=== PATIENT | female | born 1965 | race Caucasian/White ===

== ENCOUNTER 2020-05-04 16:38 | Emergency (ER) | payer BC ==
--- NOTE | 2020-05-04 17:35 | EDM.PDOC ---
ED HPI GENERAL MEDICAL PROBLEM - General Chief Complaint: Gastrointestinal Problem Stated Complaint: TROUBLE SWOLLOWING Time Seen by Provider: 05/04/20 17:18 Source of Information: Reports: Patient, Family History Limitations: Reports: No Limitations - History of Present Illness INITIAL COMMENTS - FREE TEXT/NARRATIVE: Meagan presents today with inability to swallow liquids. She reports this am she ate donuts, swallowed her pills and drank water without a problem. She then drank two bottles of water up until late afternoon. At [id number] she found that she could not get water or lemonade down, the liquid would just come up. She denies pain with swallowing. She states she tried to belch but is unable to. History of esophageal bolus and esophageal dilation. - Related Data Allergies Allergy/AdvReac Type Severity Reaction Status Date / Time aloe vera [From Biolex] Allergy Nausea Verified 05/04/20 17:01 amoxicillin Allergy Rash Verified 05/04/20 17:01 bacitracin Allergy Rash Verified 05/04/20 17:01 [From Neosporin ([id number])] neomycin Allergy Rash Verified 05/04/20 17:01 [From Neosporin ([id number])] pantothenic acid Allergy Nausea Verified 05/04/20 17:01 [From Biolex] polymyxin B Allergy Rash Verified 05/04/20 17:01 [From Neosporin ([id number])] Sulfa (Sulfonamide Allergy Rash Verified 05/04/20 17:01 Antibiotics) water [From Biolex] Allergy Nausea Verified 05/04/20 17:01 Home Meds: Home Meds NK [No Known Home Meds] 05/04/20 [History] Rizatriptan [Maxalt CLINICAL LABORATORY DIRECTOR] 10 mg PO ASDIRECTED PRN 05/04/20 [History] 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: - Past Surgical History Other HEENT Surgeries/Procedures: throat was streched surgicaly in 2017 GI Surgical History: Reports: Cholecystectomy Female Surgical History: Reports: Hysterectomy Social & Family History - Tobacco Use Smoking Status *Q: Never Smoker - Caffeine Use Caffeine Use: Reports: Soda - Recreational Drug Use Recreational Drug Use: No ED ROS ENT - Review of Systems Review Of Systems: See Below Constitutional: Reports: No Symptoms HEENT: Reports: Other (unable to swallow fluids, ) Respiratory: Reports: No Symptoms Cardiovascular: Reports: No Symptoms Endocrine: Reports: No Symptoms GI/Abdominal: Reports: No Symptoms : Reports: No Symptoms Musculoskeletal: Reports: No Symptoms Skin: Reports: No Symptoms Neurological: Reports: No Symptoms Psychiatric: Reports: No Symptoms Hematologic/Lymphatic: Reports: No Symptoms Immunologic: Reports: No Symptoms ED EXAM, ENT - Physical Exam Exam: See Below Exam Limited By: No Limitations General Appearance: Alert, WD/WN, No Apparent Distress Eye Exam: Bilateral Eye: Normal Inspection Nose: Normal Inspection, Normal Mucousa, No Blood Mouth/Throat: Normal Gums, Normal Lips, Normal Oropharynx, Normal Teeth, Other (left cervical node edema, patient unable to swallow saliva or water.) Head: Atraumatic, Normocephalic Neck: Normal Inspection, Supple, Non-Tender, Full Range of Motion, Lymphadenopathy (L), Other (noted edema of left anterior cervical node). No: Lymphadenopathy (R) Respiratory/Chest: No Respiratory Distress, Lungs Clear, Normal Breath Sounds, No Accessory Muscle Use, Chest Non-Tender. No: Crackles, Rales, Rhonchi, Wheezing, Stridor, Accessory Muscle Use, Retractions Cardiovascular: Normal Peripheral Pulses, Regular Rate, Rhythm, No Edema, No Murmur, No Rub Extremities: Normal Inspection, Normal Range of Motion. No: Non-Tender, No Pedal Edema, Normal Capillary Refill Neurological: Alert, Oriented, CN II-XII Intact, Normal Cognition, Normal Gait, No Motor/Sensory Deficits Psychiatric: Normal Affect, Normal Mood Skin: Warm, Dry, Intact, Normal Color, No Rash Lymphatic: No Adenopathy Course - Vital Signs Last Recorded V/S: Last Vital Signs Temp 36.1 C 05/04/20 17:02 Pulse 89 05/04/20 17:02 Resp 13 05/04/20 17:02 BP 130/85 05/04/20 17:02 Pulse Ox 95 05/04/20 17:02 - Orders/Labs/Meds Orders: Active Orders 24 hr Category Date Time Status Neck Soft Tissue [CR] Stat Exams 05/04/20 17:33 Taken Pantoprazole [ProTONIX] Med 05/04/20 20:33 Active 40 mg PO BEDTIME Sodium Chloride 0.9% [Saline Flush] Med 05/04/20 18:43 Active 10 ml FLUSH ASDIRECTED PRN Saline Lock Insert [OM.PC] Routine Oth 05/04/20 18:43 Ordered Medication Orders Pantoprazole Sodium (Protonix) 40 mg PO BEDTIME HOLDEN Last Admin: 05/04/20 20:54 Dose: 40 mg Documented by: ASHTYN Sodium Chloride (Saline Flush) 10 ml FLUSH ASDIRECTED PRN PRN Reason: Keep Vein Open Last Admin: 05/04/20 18:52 Dose: 10 ml Documented by: GRETA Meds: Medications Generic Name Dose Route Start Last Admin Trade Name Freq PRN Reason Stop Dose Admin Pantoprazole Sodium 40 mg 05/04/20 20:33 05/04/20 20:54 Protonix PO 40 mg BEDTIME HOLDEN Administration Sodium Chloride 10 ml 05/04/20 18:43 05/04/20 18:52 Saline Flush FLUSH 10 ml ASDIRECTED PRN Administration Keep Vein Open Discontinued Medications Generic Name Dose Route Start Last Admin Trade Name Freq PRN Reason Stop Dose Admin Glucagon 1 mg 05/04/20 18:42 05/04/20 18:52 Glucagen IM 05/04/20 18:43 1 mg ONETIME ONE Administration Pantoprazole Sodium 40 mg 05/04/20 20:18 05/04/20 20:28 Protonix Iv IVPUSH 05/04/20 20:19 40 mg ONETIME ONE Administration - Radiology Interpretation Free Text/Narrative:: Neck x-ray reviewed with patient, no acute findings. - Re-Assessments/Exams Free Text/Narrative Re-Assessment/Exam: 05/04/20 18:41 We will try glucagon 1mg IV. 05/04/20 19:10 Patient able to swallow water without any issue. 05/04/20 19:30 Dr. Lee notified of patient status, he recommends EGD on Wednesday05/06/2020, protonix 40mg IV now and 40mg PO tomorrow. Clear liquid diet until procedure. NPO after midnight tomorrow. Departure - Departure Time of Disposition: 20:28 Disposition: Home, Self-Care 01 Clinical Impression: Esophageal spasm, History of esophageal stricture - Discharge Information Instructions: Esophageal Spasm, Clear Liquid Diet, Adult Referrals: PCP,None [Primary Care Provider] - Forms: ED Department Discharge Additional Instructions: You have been evaluated and treated for esophageal spasm. Unknown if you had a food bolus or other stricture. General surgeon Dr. Lee advises protonix 40mg IV in emergency room, EGD on 05/06/2020. Take protonix 40mg by mouth in morning (05/05/2020) Clear liquid diet until tomorrow. Nothing to eat or drink on 02/03/2020 after midnight. Wednesday at 10:15am for procedure. Return for any worsening, issues or concerns. Clear liquid diet: (transparent) Water Gatorade (not red or blue) Apple juice Chicken, vegetable or beef broth Popsicles (no fruit pieces, no red or blue) Jello Sepsis Event Note (ED) - Evaluation Sepsis Screening Result: No Definite Risk - Focused Exam Vital Signs: Vital Signs Temp Pulse Resp BP Pulse Ox 05/04/20 17:02 36.1 C 89 13 130/85 95 05/04/20 16:54 36.1 C 89 13 130/85 95 - My Orders Last 24 Hours: My Active Orders 05/04/20 17:33 Neck Soft Tissue [CR] Stat 05/04/20 18:43 Sodium Chloride 0.9% [Saline Flush] 10 ml FLUSH ASDIRECTED PRN Saline Lock Insert [OM.PC] Routine 05/04/20 20:33 Pantoprazole [ProTONIX] 40 mg PO BEDTIME - Assessment/Plan Last 24 Hours: My Active Orders 05/04/20 17:33 Neck Soft Tissue [CR] Stat 05/04/20 18:43 Sodium Chloride 0.9% [Saline Flush] 10 ml FLUSH ASDIRECTED PRN Saline Lock Insert [OM.PC] Routine 05/04/20 20:33 Pantoprazole [ProTONIX] 40 mg PO BEDTIME Plan: Patient evaluated and treated for esophageal spasm. Use of glucagon assisted. Unknown if you had a food bolus or other stricture. General surgeon Dr. Lee advises protonix 40mg IV in emergency room, EGD on 05/06/2020. Take protonix 40mg by mouth in morning (05/05/2020) Clear liquid diet until tomorrow. Nothing to eat or drink on 02/03/2020 after midnight. Wednesday at 10:15am for procedure. Return for any worsening, issues or concerns. Clear liquid diet: (transparent) Water Gatorade (not red or blue) Apple juice Chicken, vegetable or beef broth Popsicles (no fruit pieces, no red or blue) Kiara
[2020-05-04] MEDS ORDERED: Glucagon,Human Recombinant 1 MG Vial IM ONE (18:42)
[2020-05-04] MEDS ORDERED: Sodium Chloride 0.9% 10 ML Syringe FLUSH PRN (18:43)
[2020-05-04] MEDS ORDERED: Pantoprazole 40 MG Vial IVPUSH ONE (20:18)
[2020-05-04] MEDS: Pantoprazole 40 MG Tab.CR PO SCH ×2 (20:54→21:04)
--- NOTE | 2020-05-06 09:35 | CR ---
Neck Soft Tissue CLINICAL HISTORY: Unable to swallow fluids FINDINGS: Prevertebral soft tissues are normal. The epiglottis has a normal contour. Subglottic airway has a normal contour. No radiopaque foreign body is identified. IMPRESSION: Negative
== END 2020-05-04 21:06 | disposition home or self-care (01) ==
LOC: JP.ED 16:38
DX: K22.4 Dyskinesia of esophagus (principal); Z91.018 Allergy to other foods; Z88.1 Allergy status to other antibiotic agents; Z88.8 Allergy status to other drugs, medicaments and biological substances; Z88.2 Allergy status to sulfonamides; Z87.19 Personal history of other diseases of the digestive system
CPT/HCPCS: 70360; 96372; 96374; 99284; A9270; C9113; J1610

== ENCOUNTER 2020-05-06 09:55 | Inpatient (IN) | payer BC ==
[2020-05-06] MEDS ORDERED: Dextrose 5%-Lactated Ringers 1,000 ML IV SCH (10:00)
[2020-05-06] MEDS ORDERED: fentaNYL 100 MCG/2 ML SDV ONE (11:06)
[2020-05-06] MEDS ORDERED: Midazolam 1 MG/ML 2 ML SDV ONE (11:06)
[2020-05-06] MEDS ORDERED: Propofol 200 MG/20 ML SDV ONE (11:06)
[2020-05-06] MEDS: Glycopyrrolate 0.2 MG/ML 2 ML SDV IVPUSH ONE ×2 (13:08→16:44)
[2020-05-06] MEDS ORDERED: Pantoprazole 40 MG Vial IVPUSH ONE (13:42)
[2020-05-06] MEDS ORDERED: Ondansetron 4 MG/2 ML SDV IVPUSH ONE (14:43)
[2020-05-06] MEDS ORDERED: Ketorolac 60 MG/2 ML SDV IM ONE (14:43)
[2020-05-06] MEDS ORDERED: Ondansetron 4 MG/2 ML SDV IVPUSH PRN (16:32)
[2020-05-06] MEDS ORDERED: Ketorolac 30 MG/ML SDV IVPUSH PRN (16:33)
[2020-05-06] MEDS ORDERED: Metoclopramide 10 MG/2 ML SDV IVPUSH PRN ×2 (16:44→16:45)
[2020-05-06] MEDS ORDERED: Ketorolac 30 MG/ML SDV IM PRN ×2 (16:45→20:30)
[2020-05-06] MEDS: Pantoprazole 40 MG Vial IVPUSH SCH (20:47)
[2020-05-07] MEDS: Dextrose 5%-Lactated Ringers 1,000 ML IV SCH ×3 (01:22→23:09)
[2020-05-07] MEDS ORDERED: Glucagon,Human Recombinant 1 MG Vial IM ONE (06:59)
[2020-05-07] MEDS ORDERED: Ketorolac 30 MG/ML SDV IM ONE (07:00)
--- NOTE | 2020-05-07 07:28 | PCM.HP.2 ---
H&P History of Present Illness - General Date of Service: 05/07/20 Admit Problem/Dx: Admission Diagnosis/Problem Admission Diagnosis/Problem Nausea and vomiting Source of Information: Patient History Limitations: Reports: No Limitations - History of Present Illness Initial Comments - Free Text/Narative: Meagan had an Upper Endoscopy yesterday in [facility] and was admitted afterwards because of post procedure nausea and vomiting. She had an emesis of red blood thought to be from the biopsies that were taken. Meagan reports taking down a tree Wednesday morning and burning pine needles with her . She hadn't eaten yet but was drinking water and noticed it was getting hard to swallow. When she went in for lunch and couldn't even drink water without throwing it right back up. In ED she states she was given a shot of Glucagon and everything cleared up. About 2 1/2 years ago she got a piece of steak stuck and had an Upper Endoscopy with dilation to prevent it from happening again. Reports no problems since until Wednesday - 05/03/2020. 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 Continues to report a headache and not feeling very good. Oral intake was minimal. Context: Reports: Sick Contact Associated Symptoms: Reports: Headaches, Nausea/Vomiting Headache Pain Score (Numeric/FACES): 1 - Related Data Allergies/Adverse Reactions: Allergies Allergy/AdvReac Type Severity Reaction Status Date / Time amoxicillin Allergy Rash Verified 05/04/20 17:01 bacitracin Allergy Rash Verified 05/04/20 17:01 [From Neosporin ([id number])] neomycin Allergy Rash Verified 05/04/20 17:01 [From Neosporin ([id number])] polymyxin B Allergy Rash Verified 05/04/20 17:01 [From Neosporin ([id number])] Sulfa (Sulfonamide Allergy Rash Verified 05/04/20 17:01 Antibiotics) clarithromycin [From Biaxin] AdvReac Nausea and Verified 05/06/20 13:45 Vomiting codeine AdvReac Abdominal Verified 05/06/20 13:45 Cramps Home Medications: Home Meds Rizatriptan [Maxalt INSULATION SPRAYER] 10 mg PO ASDIRECTED PRN 05/04/20 [History] Calcium Carbonate [Calcium] 500 mg PO DAILY 05/06/20 [History] Multivitamin [Multivitamins] 1 cap PO DAILY 05/06/20 [History] Past Medical History HEENT History: Reports: Allergic Rhinitis Respiratory History: Reports: Asthma, Pneumonia, Recurrent Gastrointestinal History: Reports: None, Colon Polyp Genitourinary History: Reports: Pyelonephritis 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: Dysfunctional Uterine Bleeding, Endometriosis, Neurological History: Reports: Migraines Hematologic History: Reports: Anemia, Iron Deficiency Dermatologic History: Reports: None - Infectious Disease History Infectious Disease History: Reports: Chicken Pox - Past Surgical History Head Surgeries/Procedures: Reports: None HEENT Surgical History: Reports: Oral Surgery, Other (See Below) Other HEENT Surgeries/Procedures: throat was streched surgicaly in 2017 Respiratory Surgical History: Reports: None GI Surgical History: Reports: Cholecystectomy, Colonoscopy, EGD Female Surgical History: Reports: Hysterectomy Neurological Surgical History: Reports: None Dermatological Surgical History: Reports: Skin Biopsy Social & Family History - Family History Family Medical History: Noncontributory - Tobacco Use Smoking Status *Q: Never Smoker - Caffeine Use Caffeine Use: Reports: Coffee, Soda - Alcohol Use Days Per Week of Alcohol Use: 1 Number of Drinks Per Day: 1 Total Drinks Per Week: 1 Date of Last Drink: 05/04/20 - Recreational Drug Use Recreational Drug Use: No H&P Review of Systems - Review of Systems: Review Of Systems: See Below General: Reports: Fatigue HEENT: Reports: Headaches Pulmonary: Reports: No Symptoms Cardiovascular: Reports: Orthopnea Gastrointestinal: Reports: Nausea, Vomiting Genitourinary: Reports: No Symptoms Musculoskeletal: Reports: No Symptoms Skin: Reports: No Symptoms Psychiatric: Reports: No Symptoms Neurological: Reports: No Symptoms Hematologic/Lymphatic: Reports: No Symptoms Immunologic: Reports: Environmental Allergy, Other (medication) Exam - Exam Exam: See Below - Vital Signs Vital Signs: Last Vital Signs Temp 98.7 F 05/07/20 07:00 Pulse 79 05/07/20 07:00 Resp 16 05/07/20 07:00 BP 119/78 05/07/20 07:00 Pulse Ox 96 05/07/20 07:13 Weight: 111 lb 8 oz - Exam Quality Assessment: DVT Prophylaxis General: Alert, Oriented, Cooperative, Mild Distress HEENT: PERRLA, Conjunctiva Clear Neck: Supple, Trachea Midline Lungs: Clear to Auscultation, Normal Respiratory Effort Cardiovascular: Regular Rate, Regular Rhythm GI/Abdominal Exam: Soft, Non-Tender (Female) Exam: Deferred Rectal (Female) Exam: Deferred Back Exam: Normal Inspection, Full Range of Motion Extremities: Normal Inspection, Normal Range of Motion, No Pedal Edema Skin: Warm, Dry, Intact Neurological: Cranial Nerves Intact Neuro Extensive - Mental Status: Alert, Oriented x3, Normal Mood/Affect, Normal Cognition, Memory Intact Neuro Extensive - Motor, Sensory, Reflexes: CN II-XII Intact Psychiatric: Alert, Normal Affect, Normal Mood - Patient Data Lab Results Last 24 hrs: Laboratory Results - last 24 hr 05/06/20 05/07/20 05/07/20 Range/Units 10:00 04:10 04:10 WBC 8.4 (4.5-11.0) K/uL RBC 4.16 (3.30-5.50) M/uL Hgb 11.7 L (12.0-15.0) g/dL Hct 36.7 (36.0-48.0) % MCV 88 (80-98) fL MCH 28 (27-31) pg MCHC 32 (32-36) % Plt Count 314 (150-400) K/uL Neut % (Auto) 77 H (36-66) % Lymph % (Auto) 14 L (24-44) % Gillespie % (Auto) 6 (2-6) % Eos % (Auto) 3 (2-4) % Baso % (Auto) 0 (0-1) % Sodium 143 (140-148) mmol/L Potassium 3.5 L (3.6-5.2) mmol/L Chloride 108 (100-108) mmol/L Carbon Dioxide 29 (21-32) mmol/L Anion Gap 9.5 (5.0-14.0) mmol/L BUN 3 L (7-18) mg/dL Creatinine 0.7 (0.6-1.0) mg/dL Est Cr Clr Drug Dosing 72.50 mL/min Estimated GFR (MDRD) > 60 (>60) Glucose 125 H (74-106) mg/dL Calcium 8.3 L (8.5-10.1) mg/dL Phosphorus 3.4 (2.5-4.9) mg/dL Magnesium 1.8 (1.8-2.4) mg/dL Total Bilirubin 0.4 (0.2-1.0) mg/dL AST 17 (15-37) U/L ALT 22 (12-78) U/L Alkaline Phosphatase 60 (46-116) U/L Total Protein 5.9 L (6.4-8.2) g/dL Albumin 3.2 L (3.4-5.0) g/dL Globulin 2.7 (2.3-3.5) g/dL Albumin/Globulin Ratio 1.2 (1.2-2.2) SARS Virus RNA (PCR) Negative (NEGATIVE) Result Diagrams: 05/07/20 04:10 05/07/20 04:10 Sepsis Event Note - Evaluation Sepsis Screening Result: No Definite Risk - Focused Exam Vital Signs: Vital Signs Temp Temp Pulse Resp BP Pulse Ox 05/07/20 07:13 96 05/07/20 07:00 98.7 F 79 16 119/78 96 05/07/20 05:00 87 16 111/73 98 05/07/20 03:00 76 16 101/63 100 05/07/20 01:33 98 05/07/20 01:00 78 18 92/74 98 05/06/20 23:00 78 16 101/61 96 05/06/20 22:13 98.7 F 78 18 111/69 99 05/06/20 20:37 98.2 F 80 18 113/70 98 05/06/20 19:39 97 Date Exam was Performed: 05/07/20 Time Exam was Performed: 07:21 Problem List Initiated/Reviewed/Updated: Yes Orders Last 24hrs: Active Orders 24 hr Category Date Time Status Admission Status [Patient Status] [ADT] Routine ADT 05/06/20 16:26 Active Ambulate [RC] QID Care 05/06/20 16:29 Active Intake and Output [RC] PRN Care 05/06/20 16:30 Active Pulse Oximetry [RC] CONTINUOUS Care 05/06/20 16:29 Active Up to Chair [RC] QID Care 05/06/20 16:29 Active Vital Signs [RC] Q2H Care 05/06/20 20:13 Active Full Liquid Diet [DIET] Diet 05/06/20 Dinner Ordered EMETERIO TEST [RM] Routine Lab 05/06/20 13:23 Received Dextrose 5%-Lactated Ringers 1,000 ml Med 05/06/20 16:45 Active IV ASDIRECTED Ketorolac [Toradol] Med 05/06/20 20:30 Active 30 mg IM Q6H PRN Metoclopramide [Reglan] Med 05/06/20 16:44 Active 5 mg IVPUSH Q6H PRN Ondansetron [Zofran] Med 05/06/20 16:32 Active 4 mg IVPUSH Q4H PRN Pantoprazole [ProTONIX IV] Med 05/06/20 21:00 Active 40 mg IVPUSH DAILY Rizatriptan [Maxalt INSULATION SPRAYER] Med 05/07/20 06:59 Active 10 mg PO Q2H PRN Medication Orders Dextrose/Lactated Ringer's (Dextrose 5%-Lactated Ringers) 1,000 mls @ 100 mls/hr IV ASDIRECTED [facility] Last Admin: 05/07/20 01:22 Dose: 100 mls/hr Documented by: JUANITO Ketorolac Tromethamine (Toradol) 30 mg IM Q6H PRN PRN Reason: Pain or headache Metoclopramide HCl (Reglan) 5 mg IVPUSH Q6H PRN PRN Reason: Nausea Ondansetron HCl (Zofran) 4 mg IVPUSH Q4H PRN PRN Reason: Nausea/Vomiting Pantoprazole Sodium (Protonix Iv) 40 mg IVPUSH DAILY [facility] Last Admin: 05/06/20 20:47 Dose: 40 mg Documented by: JUANITO Rizatriptan Benzoate (Maxalt [employer]) 10 mg PO Q2H PRN PRN Reason: Headache Assessment/Plan Comment:: Assessment: SP Upper Endoscopy with Biopsies - 05/06/2020 Post procedure nausea and vomiting Migraine Headache. Plan: Glucagon 1 mg IM now Maxalt INSULATION SPRAYER 10 mg every 2 hours prn migraine headache Levsin 0.125 mg every 4 hours prn esophageal spasms. Toraldol 30 mg IM for headache onetime if Maxalt doesn't help Plan Discharge later today or in AM pending condition Shabnam LANGE C - Mortality Measure Prognosis:: Good
[2020-05-07] MEDS ORDERED: Hyoscyamine 0.125 MG Tab.SL SL PRN (07:36)
[2020-05-07] MEDS: Rizatriptan 10 MG Tab.DIS PO PRN ×2 (07:39→21:03)
[2020-05-07] MEDS ORDERED: Ketorolac 60 MG/2 ML SDV IM ONE (11:00)
[2020-05-07] MEDS: Pantoprazole 40 MG Vial IVPUSH SCH (11:35)
--- NOTE | 2020-05-07 11:35 | PCM.CONS ---
H&P History of Present Illness - General Date of Service: 05/07/20 Admit Problem/Dx: Admission Diagnosis/Problem Admission Diagnosis/Problem Nausea and vomiting Source of Information: Patient, Family, Provider, RN Notes Reviewed History Limitations: Reports: No Limitations - History of Present Illness Initial Comments - Free Text/Narative: Ms. Roa is a 55-year-old woman who I been asked to see by Dr. Lee for further suggestions concerning evaluation and management swallowing difficulty and vomiting. She had difficulty with swallowing about 2-1/2 years ago, thought secondary to muscle spasms. She did well until 3 days ago when she developed issues with swallowing to the point where she had difficulty even managing secretions. She presented to the emergency department and did receive glucagon which resolved her symptoms. She kept herself on liquids over the weekend and was scheduled for EGD yesterday with Dr. Lee. EGD was performed and did show evidence of mild inflammation in the stomach. Dilatation was also done of the esophagus. Postoperative course complicated by vomiting and she was admitted to observation status overnight. This morning she did have some recurrence of her swallowing difficulty but again that has improved with use of glucagon. She is continued to experience spontaneous vomiting but denies abdominal pain or significant nausea. She is experiencing significant pain in the upper chest since EGD was performed yesterday. Headache Pain Score (Numeric/FACES): 7 - Related Data Allergies/Adverse Reactions: Allergies Allergy/AdvReac Type Severity Reaction Status Date / Time amoxicillin Allergy Rash Verified 05/04/20 17:01 bacitracin Allergy Rash Verified 05/04/20 17:01 [From Neosporin ([id number])] neomycin Allergy Rash Verified 05/04/20 17:01 [From Neosporin ([id number])] polymyxin B Allergy Rash Verified 05/04/20 17:01 [From Neosporin ([id number])] Sulfa (Sulfonamide Allergy Rash Verified 05/04/20 17:01 Antibiotics) clarithromycin [From Biaxin] AdvReac Nausea and Verified 05/06/20 13:45 Vomiting codeine AdvReac Abdominal Verified 05/06/20 13:45 Cramps Home Medications: Home Meds Rizatriptan [Maxalt WORT EXTRACTOR] 10 mg PO ASDIRECTED PRN 05/04/20 [History] Calcium Carbonate [Calcium] 500 mg PO DAILY 05/06/20 [History] Multivitamin [Multivitamins] 1 cap PO DAILY 05/06/20 [History] Past Medical History HEENT History: Reports: Allergic Rhinitis Respiratory History: Reports: Asthma, Pneumonia, Recurrent Gastrointestinal History: Reports: None, Colon Polyp Genitourinary History: Reports: Pyelonephritis 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: Reports: Dysfunctional Uterine Bleeding, Endometriosis, Neurological History: Reports: Migraines Hematologic History: Reports: Anemia, Iron Deficiency Dermatologic History: Reports: None - Infectious Disease History Infectious Disease History: Reports: Chicken Pox - Past Surgical History Head Surgeries/Procedures: Reports: None HEENT Surgical History: Reports: Oral Surgery, Other (See Below) Other HEENT Surgeries/Procedures: throat was streched surgicaly in 2017 Respiratory Surgical History: Reports: None GI Surgical History: Reports: Cholecystectomy, Colonoscopy, EGD Female Surgical History: Reports: Hysterectomy Neurological Surgical History: Reports: None Dermatological Surgical History: Reports: Skin Biopsy Social & Family History - Family History Family Medical History: Noncontributory - Tobacco Use Smoking Status *Q: Never Smoker - Caffeine Use Caffeine Use: Reports: Coffee, Soda - Alcohol Use Days Per Week of Alcohol Use: 1 Number of Drinks Per Day: 1 Total Drinks Per Week: 1 Date of Last Drink: 05/04/20 - Recreational Drug Use Recreational Drug Use: No H&P Review of Systems - Review of Systems: Review Of Systems: See Below General: Reports: No Symptoms HEENT: Reports: No Symptoms Pulmonary: Reports: No Symptoms Cardiovascular: Reports: Chest Pain. Denies: Palpitations, Dyspnea on Exertion, Orthopnea, PND, Edema, Lightheadedness Gastrointestinal: Reports: Difficulty Swallowing, Flatus, Vomiting. Denies: Abd ominal Pain, Black Stool, Bloody Stool, Constipation, Diarrhea, Distension, Nausea Genitourinary: Reports: No Symptoms Musculoskeletal: Reports: No Symptoms Exam - Exam Exam: See Below - Vital Signs Vital Signs: Last Vital Signs Temp 99 F 05/07/20 11:00 Pulse 78 05/07/20 11:00 Resp 16 05/07/20 11:00 BP 125/79 05/07/20 11:00 Pulse Ox 93 L 05/07/20 11:00 Weight: 111 lb 8 oz - Exam General: Alert, Oriented, Cooperative, Moderate Distress Neck: Supple, Trachea Midline, +2 Carotid Pulse wo Bruit Lungs: Clear to Auscultation, Normal Respiratory Effort Cardiovascular: Regular Rate, Regular Rhythm, Normal S1, Normal S2. No: Systolic Murmur, Diastolic Murmur GI/Abdominal Exam: Soft, Non-Tender, No Organomegaly, No Distention Extremities: Non-Tender, No Pedal Edema - Patient Data Lab Results Last 24 hrs: Laboratory Results - last 24 hr 05/07/20 05/07/20 Range/Units 04:10 04:10 WBC 8.4 (4.5-11.0) K/uL RBC 4.16 (3.30-5.50) M/uL Hgb 11.7 L (12.0-15.0) g/dL Hct 36.7 (36.0-48.0) % MCV 88 (80-98) fL MCH 28 (27-31) pg MCHC 32 (32-36) % Plt Count 314 (150-400) K/uL Neut % (Auto) 77 H (36-66) % Lymph % (Auto) 14 L (24-44) % Thomas % (Auto) 6 (2-6) % Eos % (Auto) 3 (2-4) % Baso % (Auto) 0 (0-1) % Sodium 143 (140-148) mmol/L Potassium 3.5 L (3.6-5.2) mmol/L Chloride 108 (100-108) mmol/L Carbon Dioxide 29 (21-32) mmol/L Anion Gap 9.5 (5.0-14.0) mmol/L BUN 3 L (7-18) mg/dL Creatinine 0.7 (0.6-1.0) mg/dL Est Cr Clr Drug Dosing 72.50 mL/min Estimated GFR (MDRD) > 60 (>60) Glucose 125 H (74-106) mg/dL Calcium 8.3 L (8.5-10.1) mg/dL Phosphorus 3.4 (2.5-4.9) mg/dL Magnesium 1.8 (1.8-2.4) mg/dL Total Bilirubin 0.4 (0.2-1.0) mg/dL AST 17 (15-37) U/L ALT 22 (12-78) U/L Alkaline Phosphatase 60 (46-116) U/L Total Protein 5.9 L (6.4-8.2) g/dL Albumin 3.2 L (3.4-5.0) g/dL Globulin 2.7 (2.3-3.5) g/dL Albumin/Globulin Ratio 1.2 (1.2-2.2) Result Diagrams: 05/07/20 04:10 05/07/20 04:10 Sepsis Event Note - Evaluation Sepsis Screening Result: No Definite Risk - Focused Exam Vital Signs: Vital Signs Temp Pulse Resp BP Pulse Ox 05/07/20 11:00 99 F 78 16 125/79 93 L 05/07/20 07:13 96 05/07/20 07:00 98.7 F 79 16 119/78 96 05/07/20 05:00 87 16 111/73 98 05/07/20 03:00 76 16 101/63 100 05/07/20 01:33 98 05/07/20 01:00 78 18 92/74 98 Date Exam was Performed: 05/07/20 Time Exam was Performed: 11:43 *Q Meaningful Use (ADM) - VTE Risk Assess *Q Each Risk Factor Represents 1 Point: Age 41 - 59 years Total Score 1 Point Risk Factors: 1 Each Risk Factor Represents 2 Points: None Total Score 2 Point Risk Factors: 0 Each Risk Factor Represents 3 Points: None Total Score 3 Point Risk Factors: 0 Each Risk Factor Represents 5 Points: None Total Score 5 Point Risk Factors: 0 Venous Thromboembolism Risk Factor Score *Q: 1 Consult PN Assessment/Plan Problem List Initiated/Reviewed/Updated: Yes My Orders Last 24 Hours: My Active Orders 05/07/20 11:21 Chest w Cont [CT] Stat 05/07/20 11:30 Famotidine [Pepcid] 20 mg PO BID Plan: ASSESSMENT AND RECOMMENDATIONS DYSPHASIA-abrupt onset over the weekend, responded to glucagon given in the emergency department. More likely that this was secondary to muscle spasm. No evidence of significant allergic reaction and EGD showed only possible small area of stricture. Dilatation was performed at the time of EGD. Since she has experienced significant pain in the upper chest. -CT scan of the chest to evaluate symptoms of chest pain -Glucagon as needed VOMITING-she denies significant symptoms of nausea or abdominal pain. Episodes of vomiting seem to follow doses of Protonix given IV. Nausea and vomiting are listed as common side effects from Protonix. -Discontinue Protonix -Pepcid 20 mg p.o. twice daily MIGRAINE HEADACHE-headache present over the last 24 hours -Continue outpatient therapy with Maxalt -Toradol as needed for pain Requesting Provider: SAL Date Consult Requested: 05/07/20 Reason for Consult: Dysphagia, Vomiting Patient History Reviewed: Yes Admission H&P Reviewed: Yes
[2020-05-07] MEDS: Metoclopramide 10 MG/2 ML SDV IVPUSH SCH ×3 (11:40→23:08)
[2020-05-07] MEDS ORDERED: Iopamidol 612 MG/ML 100 ML Bottle IV PRN (11:53)
[2020-05-07] MEDS ORDERED: Sodium Chloride 0.9% 10 ML SDV FLUSH ONE (11:53)
--- NOTE | 2020-05-07 12:34 | CT ---
Chest w Cont CLINICAL HISTORY: Chest pain, status post EGD and dilatation TECHNIQUE: Transverse scans were obtained from the thoracic inlet to the lung bases without contrast. Auto dosage reduction in intervertebral reconstruction techniques were employed COMPARISONS: None FINDINGS: Lungs are free of pulmonary mass or infiltrate. There are no pleural effusions or thickening. There is some linear stranding of air in the esophagus. Some of this is intraluminal. Some of this appears somewhat peripheral and may be interstitial. There are a few punctate the foci of air in the pericarinal region which appear extraluminal. No abnormal fluid collection is identified. Scans into the upper abdomen show no mass or abnormal fluid collection. IMPRESSION: There is a tiny amount of air in the pericarinal region which appears to be extraluminal following EGD and esophageal dilatation. There is also some linear stranding of air in the esophagus. Some of this may be intraluminal but some air in the interstitium is suspected. No mediastinal fluid collections Lungs are clear
[2020-05-07] MEDS: Famotidine 20 MG Tab PO SCH ×2 (13:25→20:59)
[2020-05-07] MEDS: Lactobacillus Rhamnosus GG (Probiotic) Cap PO SCH ×2 (15:49→20:10)
[2020-05-07] MEDS: Meropenem 1 GM in Sodium Chloride 0.9% 100 ML IV SCH ×2 (16:28→23:08)
[2020-05-08] MEDS: Metoclopramide 10 MG/2 ML SDV IVPUSH SCH ×4 (06:01→22:25)
[2020-05-08] MEDS: Acetaminophen/Caffeine 500-65 MG Tab PO SCH ×5 (07:48→21:41)
[2020-05-08] MEDS: Meropenem 1 GM in Sodium Chloride 0.9% 100 ML IV SCH ×3 (08:05→23:58)
[2020-05-08] MEDS: Lactobacillus Rhamnosus GG (Probiotic) Cap PO SCH ×2 (08:48→21:37)
[2020-05-08] MEDS: Famotidine 20 MG Tab PO SCH ×2 (08:49→21:42)
--- NOTE | 2020-05-08 09:00 | PN ---
DATE OF SERVICE: 05/08/2020 SUBJECTIVE: Meagan continues to report a headache. She has been afebrile. Oral intake 740, had 100 mL emesis and 2350 urine output. REVIEW OF SYSTEMS: HEENT: Headache above right eye, has not been completely controlled pain schmidt. Has been taking Maxalt, had 1 Toradol injection, and continues to report that had pain. LUNGS: Currently, has no chest pain or pain with swallowing. No cough. ABDOMEN: Denies any pain. EXTREMITIES: Negative. NEUROLOGIC: Negative. SKIN: Without rash. PSYCHIATRIC: Mood and affect appropriate. Remainder of review of systems negative for any pertinent positives and negatives. OBJECTIVE: GENERAL: Meagan is a 55-year-old female, alert and orientated. VITAL SIGNS: TPR at 0317 is 98.2, 76, and 16. Blood pressure 106/67. HEENT: Negative. NECK: Supple. HEART: Regular rate and rhythm. LUNGS: Clear. ABDOMEN: Soft and nontender. EXTREMITIES: Without peripheral edema. ASSESSMENT: 1. Status post EGD with biopsies 05/06/2020, microperforation. 2. Migraine headache. PLAN: 1. Continue Maxalt as directed, Excedrin Aspirin Free, take 2 every 6 hours p.o. scheduled for headache. 2. Change the patient's status from observation to inpatient. 3. Continue IV antibiotics of meropenem and clindamycin for microperforation. 4. Continue full-liquid diet for 1 week after discharge. 5. We will evaluate p.r.n. or in a.m. Shabnam Samuel PA-C /[id number]
[2020-05-08] MEDS: Dextrose 5%-Lactated Ringers 1,000 ML IV SCH (10:36)
--- NOTE | 2020-05-08 11:46 | PCM.CONSN ---
- General Info Date of Service: 05/08/20 Subjective Update: Ms. Roa has improved since yesterday. Headache this morning is much better, she is had no further vomiting, and chest pain has significantly improved. Vital signs have been stable and she has remained afebrile. Functional Status: Reports: Tolerating Diet, Ambulating, Urinating - Review of Systems General: Denies: Fever, Chills Pulmonary: Reports: No Symptoms Cardiovascular: Reports: No Symptoms Gastrointestinal: Reports: No Symptoms - Patient Data Vitals - Most Recent: Last Vital Signs Temp 98.8 F 05/08/20 10:44 Pulse 80 05/08/20 10:44 Resp 16 05/08/20 10:44 BP 120/75 05/08/20 10:44 Pulse Ox 98 05/08/20 10:44 Weight - Most Recent: 111 lb 8.016 oz I&O - Last 24 Hours: Intake & Output 05/07/20 05/08/20 05/08/20 22:59 06:59 14:59 Intake Total 2714 100 Output Total 800 300 Balance 1914 -200 Pawel Results Last 24 Hours: Microbiology 05/06/20 13:23 CLOtest - Final Stomach NEGATIVE CLOTEST REFERENCE RANGE: NEGATIVE Med Orders - Current: Current Medications Acetaminophen/Caffeine (Excedrin Tension Headache) 2 tab PO Q6HR ON LICENSE OF [facility] Last Admin: 05/08/20 09:42 Dose: Not Given Documented by: Famotidine (Pepcid) 20 mg PO BID ON LICENSE OF [facility] Last Admin: 05/08/20 08:49 Dose: 20 mg Documented by: Hyoscyamine (Hyomax-Sl) 0.125 mg SL Q4H PRN PRN Reason: difficulty swallowing/spasms Last Admin: 05/07/20 11:40 Dose: 0.125 mg Documented by: Meropenem 1 gm/ Sodium (Chloride) 100 mls @ 200 mls/hr IV Q8H ON LICENSE OF [facility] Last Admin: 05/08/20 08:05 Dose: 200 mls/hr Documented by: Clindamycin Phosphate 600 mg/ (Sodium Chloride) 54 mls @ 100 mls/hr IV Q6H ON LICENSE OF [facility] Last Admin: 05/08/20 08:48 Dose: 100 mls/hr Documented by: Ketorolac Tromethamine (Toradol) 30 mg IM Q6H PRN PRN Reason: Pain or headache Stop: 05/11/20 20:31 Last Admin: 05/08/20 04:00 Dose: 30 mg Documented by: Lactobacillus Rhamnosus (Culturelle) 1 cap PO BID ON LICENSE OF [facility] Last Admin: 05/08/20 08:48 Dose: Not Given Documented by: Metoclopramide HCl (Reglan) 5 mg IVPUSH Q6H ON LICENSE OF [facility] Last Admin: 05/08/20 10:35 Dose: 5 mg Documented by: Ondansetron HCl (Zofran) 4 mg IVPUSH Q4H PRN PRN Reason: Nausea/Vomiting Potassium Chloride (Klor-Con M20) 40 meq PO ONETIME ONE Stop: 05/08/20 11:41 Rizatriptan Benzoate (Maxalt Family Law Paralegal) 10 mg PO Q2H PRN PRN Reason: Headache Last Admin: 05/07/20 21:03 Dose: 10 mg Documented by: Discontinued Medications Fentanyl (Sublimaze) Confirm Administered Dose 100 mcg .ROUTE .STK-MED ONE Stop: 05/06/20 11:07 Glucagon (Glucagen) 1 mg IM ONETIME ONE Stop: 05/07/20 07:00 Last Admin: 05/07/20 07:44 Dose: 1 mg Documented by: Glycopyrrolate (Glycopyrrolate) 0.4 mg IVPUSH ONETIME ONE Stop: 05/06/20 09:48 Last Admin: 05/06/20 16:44 Dose: Not Given Documented by: Dextrose/Lactated Ringer's (Dextrose 5%-Lactated Ringers) 1,000 mls @ 100 mls/hr IV ASDIRECTED ON LICENSE OF [facility] Last Admin: 05/06/20 11:28 Dose: 100 mls/hr Documented by: Dextrose/Lactated Ringer's (Dextrose 5%-Lactated Ringers) 1,000 mls @ 100 mls/hr IV ASDIRECTED ON LICENSE OF [facility] Last Admin: 05/08/20 10:36 Dose: 100 mls/hr Documented by: Sodium Chloride (Normal Saline) 85 mls @ 85 mls/sec IV ASDIRECTED ON LICENSE OF [facility] Stop: 05/07/20 13:30 Last Admin: 05/07/20 12:07 Dose: 85 mls/sec Documented by: Iopamidol (Isovue-300 (61%)) 100 ml IV . DIRECTED PRN PRN Reason: RADIOLOGY EXAM Stop: 05/08/20 11:54 Last Admin: 05/07/20 12:07 Dose: 100 ml Documented by: Ketorolac Tromethamine (Toradol) 60 mg IM ONETIME ONE Stop: 05/06/20 14:44 Last Admin: 05/06/20 15:04 Dose: 60 mg Documented by: Ketorolac Tromethamine (Toradol) 30 mg IM ONETIME ONE Stop: 05/07/20 07:01 Last Admin: 05/07/20 10:39 Dose: Not Given Documented by: Ketorolac Tromethamine (Toradol) 60 mg IM ONETIME ONE Stop: 05/07/20 11:01 Last Admin: 05/07/20 11:16 Dose: 60 mg Documented by: Metoclopramide HCl (Reglan) 5 mg IVPUSH Q6H PRN PRN Reason: NAUSEA Metoclopramide HCl (Reglan) 5 mg IVPUSH Q6H PRN PRN Reason: Nausea Midazolam HCl (Versed 1 Mg/Ml) Confirm Administered Dose 2 mg .ROUTE .STK-MED ONE Stop: 05/06/20 11:07 Ondansetron HCl (Zofran) 4 mg IVPUSH ONETIME ONE Stop: 05/06/20 14:44 Last Admin: 05/06/20 15:00 Dose: 4 mg Documented by: Pantoprazole Sodium (Protonix Iv) 40 mg IVPUSH ONETIME ONE Stop: 05/06/20 13:43 Last Admin: 05/06/20 13:49 Dose: 40 mg Documented by: Pantoprazole Sodium (Protonix Iv) 40 mg IVPUSH DAILY HOLDEN Last Admin: 05/07/20 11:35 Dose: Not Given Documented by: Propofol (Diprivan 20 Ml) Confirm Administered Dose 200 mg .ROUTE .STK-MED ONE Stop: 05/06/20 11:07 Sodium Chloride (Normal Saline) 10 ml FLUSH ONETIME ONE Stop: 05/07/20 11:54 Last Admin: 05/07/20 13:26 Dose: Not Given Documented by: - Exam General: Alert, Oriented, Cooperative, Mild Distress Lungs: Clear to Auscultation, Normal Respiratory Effort Cardiovascular: Regular Rate, Regular Rhythm, No Murmurs GI/Abdominal Exam: Soft, Non-Tender, No Organomegaly, No Distention Extremities: Non-Tender, No Pedal Edema Sepsis Event Note - Evaluation Sepsis Screening Result: No Definite Risk - Focused Exam Vital Signs: Vital Signs Temp Pulse Resp BP Pulse Ox 05/08/20 10:44 98.8 F 80 16 120/75 98 05/08/20 07:57 98.2 F 82 18 115/79 97 05/08/20 03:17 98.2 F 76 16 106/67 96 Date Exam was Performed: 05/08/20 Time Exam was Performed: 11:42 Consult PN Assessment/Plan Procedures: Procedures EMERGENCY DEPT VISIT (05/04/20) THER/PROPH/DIAG INJ IV PUSH (05/04/20) THER/PROPH/DIAG INJ SC/IM (05/04/20) X-RAY EXAM OF NECK (05/04/20) Problem List Initiated/Reviewed/Updated: Yes My Orders Last 24 Hours: My Active Orders 05/07/20 11:30 Famotidine [Pepcid] 20 mg PO BID 05/07/20 14:00 Lactobacillus Rhamnosus GG [Culturelle] 1 cap PO BID 05/07/20 15:00 Clindamycin Phosphate [Cleocin] 600 mg Sodium Chloride 0.9% [Normal Saline] 50 ml IV Q6H 05/07/20 16:00 Meropenem [Merrem] 1 gm Sodium Chloride 0.9% [Normal Saline] 100 ml IV Q8H 05/08/20 11:40 Potassium Chloride [Klor-Con M20] 40 meq PO ONETIME ONE 05/08/20 11:42 Convert IV to Saline Lock [OM.PC] Routine Plan: ASSESSMENT AND RECOMMENDATIONS ESOPHAGEAL MICROPERFORATION-history of esophageal spasm over the weekend. EGD complicated by upper chest pain and vomiting. Chest pain is significantly improved and vomiting has resolved -Continue current IV antibiotic therapy with clindamycin and meropenem -Transition to oral antibiotic therapy tomorrow for a total course of 10 days -Full liquid diet -Glucagon as needed VOMITING-resolved -Pepcid 20 mg p.o. twice daily MIGRAINE HEADACHE-headache significantly improved this morning -Continue outpatient therapy with Maxalt -Toradol as needed for pain
[2020-05-08] MEDS ORDERED: Potassium Chloride 20 MEQ Tab.ER PO ONE (12:15)
[2020-05-09] MEDS: Acetaminophen/Caffeine 500-65 MG Tab PO SCH ×2 (03:55→11:02)
[2020-05-09] MEDS: Metoclopramide 10 MG/2 ML SDV IVPUSH SCH ×2 (04:04→11:02)
[2020-05-09] MEDS: Meropenem 1 GM in Sodium Chloride 0.9% 100 ML IV SCH (07:38)
[2020-05-09] MEDS: Famotidine 20 MG Tab PO SCH (08:44)
[2020-05-09] MEDS: Lactobacillus Rhamnosus GG (Probiotic) Cap PO SCH (11:02)
--- NOTE | 2020-05-10 08:47 | DISCH ---
ADMISSION DIAGNOSES: 1. EGD with biopsies, 05/06/2020. 2. EGD complicated by microperforation with air in esophageal wall. 3. History of migraine headaches. DISCHARGE DIAGNOSES: 1. Resolution of microperforation with air in esophageal wall secondary to EGD with biopsies, 05/06/2020. 2. Intractable migraine headache. 3. Nausea, resolved. HISTORY: Meagan Roa is a 55-year-old female who went to the emergency room on 05/04/2020. She was pecking down the trees Wednesday morning, burning pine needles with her . She had not eaten, but was drinking water, and once she got back into the house around lunchtime, she could not drink water without throwing it right back up. In the ED, she was given a shot of glucagon. Everything was cleared up and she was set up for an upper endoscopy with dilation on 05/06/2020. After the EGD, she developed severe migraine headache with emesis and dry heaving. This was thought to cause a microperforation in the areas of the biopsies that were done. Meagan was admitted to 2nd floor. She continued to have migraine headache and nausea and vomiting. Headaches were treated with Toradol 30 mg IM every 6 hours, Zofran 4 mg IV push and Maxalt-ORTHOTIST PROSTHETIST 10 mg every 2 hours p.r.n. She was given adequate fluids, started on a clear liquid diet, then advanced to a full liquid diet. IV antibiotics consisted of clindamycin 600 mg IV every 6 hours and meropenem 1 g every 8 hours. She also received Protonix and it was switched to Pepcid 20 mg p.o. b.i.d. and Levsin 0.125 mg sublingual every 4 hours for esophageal spasm. Reglan 5 mg IV every 6 hours was scheduled to keep the nausea under control. On 05/09/2020, Meagan reports no abdominal pain. No nausea, vomiting, and no headache. She was able to be discharged to home. Oral intake in the past 24 hours was 1040. Urine output was 1900+ on 3 voids. REVIEW OF SYSTEMS: GENERAL: No fever, chills, or night sweats. No headache, dizziness. NECK: No neck pain. CHEST: No chest pain, shortness of breath, fast or irregular heart beat. LUNGS: No cough. ABDOMEN: Negative. EXTREMITIES: No joint pain or swelling. SKIN: No rash. NEUROLOGIC: Negative. PSYCHIATRIC: Negative for anxiety, insomnia, or depression. Remainder of review of systems negative for any pertinent positives and negatives. OBJECTIVE: GENERAL: Meagan Roa is a pleasant 55-year-old female. VITAL SIGNS: Height is 5 feet 6.14 inches. Weight is 111 pounds. TPR at 0700; 96.9, 96, 18. Blood pressure 110/81. HEENT: Negative. NECK: Supple. HEART: Regular rate and rhythm. LUNGS: Clear. ABDOMEN: Soft, nontender. EXTREMITIES: Without peripheral edema. NEUROLOGIC: Intact. PSYCHIATRIC: Mood and affect appropriate. SKIN: Without rash. DISPOSITION: Discharged to home. CONDITION: Stable and improving. FOLLOWUP APPOINTMENT: A followup appointment is to be made with her primary care provider, ANISA Fitzgerald at [facility], [place] [address]. She will be discussing a swallowing test with speech pathologist. HOME MEDICATIONS: 1. Levaquin 500 mg p.o. daily, #5. 2. Pepcid 20 mg oral b.i.d., #60. To resume home medications of; 1. Calcium carbonate 500 mg oral once daily. 2. Multivitamin 1 capsule oral daily. 3. Maxalt 10 mg every 2 hours p.r.n. migraine headache. DIET: A full liquid diet until 05/13/2020, then gradually progress to regular diet as tolerated. ACTIVITY: As tolerated. May shower. DISCHARGE INSTRUCTIONS: Notify provider if any fever, increased pain, nausea, or vomiting.
--- NOTE | 2020-05-10 13:59 | PN ---
DATE OF SERVICE: 05/08/2020 Earlier this afternoon, the patient underwent an upper endoscopy with biopsies of the esophagogastric junction and antrum and esophageal dilation. In the immediate postoperative period, the patient did well. She then developed quite severe headache and then had some apparently forceful emesis. She is complaining some discomfort in the abdomen and lowermost chest, but otherwise appears to be stable. We did give her a dose of Toradol IM, which did help transiently with the headache, but at this point, she continues to have problems with headache and some emesis. The plan will be to admit the patient overnight for observation. Clinically, she does not appear to be someone who is likely to have a major perforation at this point. We will observe things clinically overnight, provide hydration, and try to control the headache issue. Sher Lee MD /[id number]
--- NOTE | 2020-05-10 14:29 | PN ---
DATE OF SERVICE: 05/07/2020 The patient continues to have headaches along with some laryngopharyngeal-type dysphagia making it difficult to maintain adequate oral intake. The patient continued to have some mild discomfort in the lower chest and abdomen. A CT scan was obtained that showed some very small areas of air within the wall of the esophagus. I suspect from the retching yesterday, there was some tracking of air in the submucosal planes along the esophagus at the biopsy sites. She is not at all septic and after discussion of this with the hospitalist, Dr. Vaughan, we felt this would be something we would treat with antibiotics, and otherwise, have her maintain a little bit in the way of oral intake as tolerated and follow the course clinically. If the patient continues to have problems with headaches, then we will work on getting control with combination of Maxalt and Toradol. Sher Lee MD /[id number]
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
== END 2020-05-09 11:30 | disposition home or self-care (01) | DRG 813 ==
LOC: JP.SDS 09:55 → JP.MS 16:32 → OBSVTOIN 05-08 06:51
PROVIDERS: ADMIT Surgery; ATTEND Surgery
DX: K91.71 Accidental puncture and laceration of a digestive system organ or structure during a digestive system procedure (principal); K21.9 Gastro-esophageal reflux disease without esophagitis; K44.9 Diaphragmatic hernia without obstruction or gangrene; K29.70 Gastritis, unspecified, without bleeding; G43.919 Migraine, unspecified, intractable, without status migrainosus; J45.909 Unspecified asthma, uncomplicated; D64.9 Anemia, unspecified; Z11.59 Encounter for screening for other viral diseases; Z88.0 Allergy status to penicillin; Z88.1 Allergy status to other antibiotic agents; Z88.2 Allergy status to sulfonamides; Z79.899 Other long term (current) drug therapy; Z87.01 Personal history of pneumonia (recurrent); Z90.49 Acquired absence of other specified parts of digestive tract
CPT/HCPCS: 36415; 71260; 71260-26; 80053; 83735; 84100; 85025; 87081; 88305; 94762; 96361; 96365; 96367; 96372; 96375; 96376; A9270-GY; C9113; G0378; J1610; J1885; J2185; J2250; J2405; J2704; J2765; J3010; J3490; J7050; J7121; Q9967; U0002